=== PATIENT | female | born 1990 ===

== ENCOUNTER 2022-07-31 14:50 | Emergency (ER) | payer MEDICAID, OTHER ==
[~2022-07-31] VITALS: Ht 167.6 cm; Wt 66.9 kg
[2022-07-31 16:36] LABS: Urine Bacteria FEW /hpf (None Seen); Urine Blood Negative /uL (Negative); Urine Specific Gravity 1.003 (1.001-1.035); Urine WBC 1 /hpf (0 - 5)
[2022-07-31 17:07] VITALS: BP 118/75
== END 2022-07-31 17:08 | disposition home or self-care (01) ==
LOC: ER 14:50
DX: O26.891 Other specified pregnancy related conditions, first trimester (principal); R10.32 Left lower quadrant pain; Z3A.09 9 weeks gestation of pregnancy
CPT/HCPCS: 81001